=== PATIENT | female | born 1990 | race Caucasian/White ===

== ENCOUNTER 2017-07-27 06:17 | Emergency (ER) | payer OTHER ==
[~2017-07-27] VITALS: Ht 167.6 cm; Wt 137.9 kg
[~2017-07-27 06:17] MED LIST: BACITRACIN15 GM TOP; BRINTELLIX10 MG PO; CAVAN-FOLATE D1 EACH PO; FOLIC ACID1 MG PO; GENTAMICIN SUL3.5 GM OD; IBUPROFEN600 MG PO; LISINOPRIL-HCT1 EAC2 PO; LISINOPRIL20 MG PO; METFORMIN HCL500 M1 PO; MIRENA1 EACH IY; PHENDIMETRAZIN105 MG PO; TRAMADOL HCL50 MG PO; VITAMIN D250000 UNIT PO; XANAX0.5 MG PO; ZOFRAN ODT4 MG SL; ZOLPIDEM TARTRAT5 MG PO
[2017-07-27] MEDS ORDERED: ALPRAZOLAM ER2 MG PO (06:24)
[2017-07-27] MEDS ORDERED: PROPRANOLOL HCL60 MG PO (06:25)
[2017-07-27] MEDS ORDERED: CIPRO500 MG PO (06:40)
[2017-07-27] MEDS ORDERED: CIPRODEX OTIC7.5 ML AD (06:40)
[2017-07-27] MEDS ORDERED: NORCO 5-325 TA1 EACH PO (06:40)
== END 2017-07-27 06:51 | disposition home or self-care (01) ==
LOC: ED 06:17
DX: H60.91 Unspecified otitis externa, right ear (principal); I10 Essential (primary) hypertension; F17.200 Nicotine dependence, unspecified, uncomplicated; Z88.0 Allergy status to penicillin; Z88.2 Allergy status to sulfonamides; Z79.899 Other long term (current) drug therapy
CPT/HCPCS: 99283

== ENCOUNTER 2018-09-17 02:54 | Emergency (ER) | payer OTHER ==
[~2018-09-17] VITALS: Ht 167.6 cm; Wt 144.2 kg
[~2018-09-17 02:54] MED LIST changes: +ALPRAZOLAM ER2 MG PO; +CIPRO500 MG PO; +CIPRODEX OTIC7.5 ML AD; +DOXYCYCLINE HY100 MG PO; +NORCO 5-325 TA1 EACH PO; +PROPRANOLOL HCL60 MG PO
[2018-09-17] MEDS ORDERED: OLANZAPINE10 MG PO (03:08)
--- NOTE | 2018-09-17 11:32 | EKG ---
[facility] [address] [place] [address] Signed Normal sinus rhythm Cannot rule out Anterior infarct , age undetermined Abnormal ECG When compared with ECG of 04-JUL-2018 12:44, T wave amplitude has decreased in Anterolateral leads Confirmed by SUSAN TAYLOR DO ([id number]) on 09/17/2018 11:32:09 AM Electronically Signed By: SUSAN TAYLOR DO 09/17/18 1132 PATIENT NAME: HENRYLARA YO Electrocardiogram DATE OF : 89 PHYSICIAN: SUSAN TAYLOR DO REPORT #: [id number] REPORT IS CONFIDENTIAL AND NOT TO BE RELEASED WITHOUT AUTHORIZATION
== END 2018-09-17 05:15 | disposition home or self-care (01) ==
LOC: ED 02:54
DX: R07.9 Chest pain, unspecified (principal); I10 Essential (primary) hypertension; J45.909 Unspecified asthma, uncomplicated; F41.9 Anxiety disorder, unspecified; F17.200 Nicotine dependence, unspecified, uncomplicated; Z88.0 Allergy status to penicillin; Z88.2 Allergy status to sulfonamides; Z79.899 Other long term (current) drug therapy
CPT/HCPCS: 36415; 71046; 80053; 84484; 85025; 93005; 93010; 99285-25

== ENCOUNTER 2018-11-03 18:52 | Emergency (ER) | payer OTHER ==
[~2018-11-03] VITALS: Ht 167.6 cm; Wt 144.2 kg
--- OUTSIDE RECORDS SUMMARY | ~2018-11-03 | XMS | Clinical Summary ---
Demographics + + + | Address | [address] | | | [place] [address] | + + + | Home Phone | | + + + | Preferred Language | Unknown | + + + | Marital Status | Single | + + + | Oriental Orthodox Affiliation | 1013 | + + + | Race | Unknown | + + + | Ethnic Group | Unknown | + + + Author + + + | Author | [facility] | | | and [place] | + + + | Organization | [facility] | | | and [place] | + + + | Address | Unknown | + + + | Phone | Unavailable | + + + Support + + +---------+ + | Name | Relationship | Address | Phone | + + +---------+ + | Sunita Figueroa | AMAIRANI | Unknown | | + + +---------+ + | Neo Vick | ECON | Unknown | | + + +---------+ + Care Team Providers + +------+ + | Care Teaching Pastor Name | Role | Phone | + +------+ + | Enrrique Feliz DO | PP | | + +------+ + Allergies + [...] | + + + + + + Current Medications + + +--------+---------+------+------+-------+ | Prescription | Sig. | Disp. | Refills | Star | End | Statu | | | | | | t | Date | s | | | | | | Date | | | + + +--------+---------+------+------+-------+ | ALPRAZolam (XANAX) | Take 2 mg by mouth | | | | | Activ | | 2 MG tablet | Daily. | | | | | e | + + +--------+---------+------+------+-------+ | propranolol | Take 60 mg by mouth | | | | | Activ | | (INDERAL LA) 60 mg | Daily. | | | | | e | | SR capsule | | | | | | | + + +--------+---------+------+------+-------+ | ALPRAZolam (XANAX) | Take 0.5 mg by mouth | | | | | Activ | | 0.5 mg tablet | 3 times daily as | | | | | e | | | needed for Anxiety. | | | | | | + + +--------+---------+------+------+-------+ | | Take 1-2 tablets by | 12 | 0 | 09/3 | | Activ | | HYDROcodone-acetamin | mouth every 6 hours | tablet | | 0/20 | | e | | ophen (NORCO) 5-325 | as needed for Pain. | | | 17 | | | | mg per tablet | | | | | | | + + +--------+---------+------+------+-------+ Active Problems Not on file Social History [...] + +---------+ + | Alcohol Use | Drinks/We | oz/Week | Comments | | | ek | | | + + +---------+ + | Yes | | | "rarely" | + + +---------+ + + + + | Sex Assigned at | Date Recorded | | | | + + + | Not on file | | + + + Last Filed Vital Signs + + + + | Vital Sign | Reading | Time Taken | + + + + | Blood Pressure | 132/89 | 05/16/20171505 PDT | + + + + | Pulse | 102 | 05/16/20171505 PDT | + + + + | Temperature | 36.7 C (98 F) | 05/16/20171505 PDT | + + + + | Respiratory Rate | 16 | 05/16/20171505 PDT | + + + + | Oxygen Saturation | 97% | 05/16/20171505 PDT | + + + + | Inhaled Oxygen | - | - | | Concentration | | | + + + + | Weight | 141.5 kg (312 lb) | 05/16/20171505 PDT | + + + + | Height | 170.2 cm (5' 7") | 05/16/20171505 PDT | + + + + | Body Mass Index | 48.87 | 05/16/20171505 PDT | + + + + Plan of Treatment [...] | | | | Pneumococcal 19-64 | 9 | | | | (PPSV23 only) Medium | | | | | Risk (1 of 1 - | | | | | PPSV23) | | | | + + + + + | Cervical Cancer | | | | | Screening (Pap) | 1 | | | + + + + + | Vaccine: Influenza | | | | | (#1) | 8 | | | + + + + + Results Not on filefrom Last 3 Months Insurance + +--------+ +--------+ +---------+ | Payer | Benefi | Subscriber | Type | Phone | Address | | | t Plan | ID | | | | | | / | | | | | | | Group | | | | | + +--------+ +--------+ +---------+ | [employer] | MODA | [id number] | Medica | [phone] | | MEDICAID HMO | HEALTH | | id | 9821 | | | | MDCD | | | | | | | [place]MO [place] | | | | | + +--------+ +--------+ +---------+ + +--------+ +--------+ + + | Guarantor Name | Accoun | Relation to | Date | Phone | Billing Address | | | t Type | Patient | of | | | | | | | | | | + +--------+ +--------+ + + | DEMETRA FIGUEROA | Person | Self [birth year] | Home: | [address] | | | al/Fam | | 1989 | [phone] | [place] [address] | | | jovana | | | [phone] | | + +--------+ +--------+ + +
--- OUTSIDE RECORDS SUMMARY | ~2018-11-03 | XMS | Clinical Summary ---
Demographics + + + | Address | [address] | | | [place] [address] | + + + | Home Phone [...] Author + + + | Author | [facility] | | | and [place] | + + + | Organization | [facility] | | | and [place] [...] Team Providers + +------+ + | Care Pile Driver Operator Name | Role | Phone | [...] | [employer] | MODA | [id number] | Medica | [phone] | | MEDICAID HMO | HEALTH [...] | 1989 | [phone] | [place] [address] | | | jovana | | | [phone] | | + +--------+ +--------+ + +
[~2018-11-03 18:52] MED LIST changes: +OLANZAPINE10 MG PO
[2018-11-03] MEDS ORDERED: DIAZEPAM10 MG PO (19:04)
[2018-11-03] MEDS ORDERED: LISINOPRIL10 MG PO (19:04)
[2018-11-03] MEDS ORDERED: ANUSOL-HC30 GM PR (20:51)
[2018-11-03] MEDS ORDERED: DIFLUCAN150 MG PO (20:51)
== END 2018-11-03 21:02 | disposition home or self-care (01) ==
LOC: ED 18:52
DX: B37.3 Candidiasis of vulva and vagina (principal); K64.4 Residual hemorrhoidal skin tags; I10 Essential (primary) hypertension; J45.909 Unspecified asthma, uncomplicated; F41.9 Anxiety disorder, unspecified; F17.200 Nicotine dependence, unspecified, uncomplicated; Z88.0 Allergy status to penicillin; Z88.2 Allergy status to sulfonamides; Z79.899 Other long term (current) drug therapy
CPT/HCPCS: 81001; 84703; 87491; 87591; 99283

== ENCOUNTER 2019-07-30 08:22 | Emergency (ER) | payer OTHER ==
[~2019-07-30] VITALS: Ht 170.2 cm; Wt 140.6 kg
--- OUTSIDE RECORDS SUMMARY | ~2019-07-30 | XMS | Clinical Summary ---
Demographics + + + | Address | [address] | | | [place] [address] | + + + | Home Phone | | + + + | Preferred Language | Unknown | + + + | Marital Status | Single | + + + | Latter-Day Affiliation | 1013 | + + + | Race | Unknown | + + + | Ethnic Group | Unknown | + + + Author + + + | Author | [facility] | | | and [place] | + + + | Organization | [facility] | | | and [place] | + + + | Address | [...] Team Providers + +------+ + | Care Operations Program Manager Name | Role | Phone | + +------+ + | Enrrique Feliz DO | PCP | | + +------+ + Allergies + + + + + + | Active Allergy | Reactions | Severity | Noted | Comments | | | | | Date | | + + + + + + | Penicillins | Anaphylaxis | High | 06/22/20 | | | | | | 16 | | + + + + + + | Sulfa Antibiotics | | | 06/22/20 | Unk | | | | | 16 | | + + + + + + Medications + + + +---------+------+------+-------+ | Medication | Sig | Dispensed | Refills | Star | End | Statu | | | | | | t | Date | s | | | | | | Date | | | + + + +---------+------+------+-------+ | ALPRAZolam (XANAX) | Take 2 mg by mouth | | 0 | | | Activ | | 2 MG tablet | Daily. | | | | | e | + + + +---------+------+------+-------+ | propranolol | Take 60 mg by mouth | | 0 | | | Activ | | (INDERAL LA) 60 mg | Daily. | | | | | e | | SR capsule | | | | | | | + + + +---------+------+------+-------+ | ALPRAZolam (XANAX) | Take 0.5 mg by mouth | | 0 | | | Activ | | 0.5 mg tablet | 3 times daily as | | | | | e | | | needed for Anxiety. | | | | | | + + + +---------+------+------+-------+ | | Take 1-2 tablets by | 12 | 0 | 09/3 | | Activ | | HYDROcodone-acetamin | mouth every 6 hours | tablet | | 0/20 | | e | | ophen (NORCO) 5-325 | as needed for Pain. | | | 17 | | | | mg per tablet | | | | | | | + + + +---------+------+------+-------+ Active Problems Not on file Social History + +-------+ +--------+------+ | Tobacco Use | Types | Packs/Day | Years | Date | | | | | Used | | + +-------+ +--------+------+ | Current Every Day | | 1 | | | | Smoker | | | | | + +-------+ +--------+------+ + +---+---+---+ | Smokeless Tobacco: | | | | | Never Used | | | | + +---+---+---+ + + | Tobacco Cessation: Ready to Quit: Yes | + + + + +---------+ + | Alcohol Use | Drinks/Week | oz/Week | Comments | + + +---------+ + | Yes | | | "rarely" | + + +---------+ + + + + | Sex Assigned at | Date Recorded | | | | + + + | Not on file | | + + + + + + + | Job Start Date | Occupation | Industry | + + + + | Not on file | Not on file | Not on file | + + + + + + + + | Travel History | Travel Start | Travel End | + + + + + + | No recent travel history available. | + + Last Filed Vital Signs + + + + + | Vital Sign | Reading | Time Taken | Comments | + + + + + | Blood Pressure | 132/89 | 2017 3:06 PM | | | | | PDT | | + + + + + | Pulse | 102 | 2017 3:06 PM | | | | | PDT | | + + + + + | Temperature | 36.7 C (98 F) | 2017 3:06 PM | | | | | PDT | | + + + + + | Respiratory Rate | 16 | 2017 3:06 PM | | | | | PDT | | + + + + + | Oxygen Saturation | 97% | 2017 3:06 PM | | | | | PDT | | + + + + + | Inhaled Oxygen | - | - | | | Concentration | | | | + + + + + | Weight | 141.5 kg (312 lb) | 2017 3:06 PM | | | | | PDT | | + + + + + | Height | 170.2 cm (5' 7") | 2017 3:06 PM | | | | | PDT | | + + + + + | Body Mass Index | 48.87 | 2017 3:06 PM | | | | | PDT | | + + + + + Plan of Treatment + + + + + | Health Maintenance | Due Date | Last Done | Comments | + + + + + | Vaccine: | | | | | Dtap/Tdap/Td (1 - | 9 | | | | Tdap) | | | | + + + + + | Cervical Cancer | | | | | Screening (Pap) | 1 | | | + + + + + | Vaccine: Influenza | | | | | (#1) | 9 | | | + + + + + Results Not on filefrom Last 3 Months Insurance + +--------+ +--------+ +---------+--------+ | Payer | Benefi | Subscriber | Effect | Phone | Address | Type | | | t Plan | ID | rik | | | | | | / | | Dates | | | | | | Group | | | | | | + +--------+ +--------+ +---------+--------+ | [employer] | MODA | [id number] | | [phone] | | Medica | | MEDICAID HMO | HEALTH | | [phone]-Pr | 1 | | id | | | MDCD | | esent | | | | | | HMO [place] | | | | | | + +--------+ +--------+ +---------+--------+ + +--------+ +--------+ + + | Guarantor Name | Accoun | Relation to | Date | Phone | Billing Address | | | t Type | Patient | of | | | | | | | | | | + +--------+ +--------+ + + | Demetra Baer | Person | Self [birth year] | [address] | | | al/Fam | | 1990 | [phone] | [place] [address] | | | jovana | | | 8 (Home) | | + +--------+ +--------+ + + Advance Directives + + + + + | Type | Date Recorded | Patient | Explanation | | | | Factory Engineer | | + + + + + | Power of | | | | | Relief Cook | | | | + + + + + | Advance | | | | | Directive | | | | + + + + +
--- OUTSIDE RECORDS SUMMARY | ~2019-07-30 | XMS | Encounter Summary ---
Demographics + + + | Address | [address] | | | [place] [address] | + + + | Home Phone | | + + + | Preferred Language | Unknown | + + + | Marital Status | Single | + + + | Hoahaoism Affiliation | 1013 | + + + | Race | Unknown | + + + | Ethnic Group | Unknown | + + + Author + + + | Author | [facility] | | | and [place] | + + + | Organization | [facility] | | | and [place] | [...] Team Providers + +------+ + | Care Cattle Driver Name | Role | Phone | + +------+ + | Enrrique Feliz DO | PCP | | + +------+ + Reason for Visit + + + | Reason | Comments | + + + | Knee Pain | | + + + Encounter Details +--------+ + + + + | Date | Type | Department | Care Team | Description | +--------+ + + + + | 05/16/ | Emergency | [facility] | Fred Arroyo MD | Sprain of left knee, | | 2017 | | [facility] | [address] | unspecified | | | | CENTER [address] | [place] | ligament, initial | | | | [place], [place] | [address] | encounter (Primary | | | | [address] | | Dx) | | | | [phone] | | | +--------+ + + + [...] recent travel history available. | + + documented as of this encounter [...] documented in this encounter Discharge Instructions Instructions Fred Arroyo MD - 2017Crutches as needed, may start to bear weight as tolerated Ice to help with swelling Pain medication as needed Return for worsening symptoms, not improving, other new complaints documented in this encounter Medications at Time of Discharge + + + +---------+ + + | Medication | Sig | Dispensed | Refills | Start | End Date | | | | | | Date | | + + + +---------+ + + | ALPRAZolam (XANAX) | Take 0.5 mg by mouth | | 0 | | | | 0.5 mg tablet | 3 times daily as | | | | | | | needed for Anxiety. | | | | | + + + +---------+ + + | ALPRAZolam (XANAX) | Take 2 mg by mouth | | 0 | | | | 2 MG tablet | Daily. | | | | | + + + +---------+ + + | | Take 1-2 tablets by | 12 | 0 | 05/16/20 | | | HYDROcodone-acetamin | mouth every 6 hours | tablet | | 17 | | | ophen (NORCO) 5-325 | as needed for Pain. | | | | | | mg per tablet | | | | | | + + + +---------+ + + | propranolol | Take 60 mg by mouth | | 0 | | | | (INDERAL LA) 60 mg | Daily. | | | | | | SR capsule | | | | | | + + + +---------+ + + documented as of this encounter Plan of Treatment Not on filedocumented as of this encounter Procedures + +--------+ + + + | Procedure Name | Priori | Date/Time | Associated Diagnosis | Comments | | | ty | | | | + +--------+ + + + | XR KNEE LEFT 1 - 2 | STAT | 2017 | | Results for this | | VW | | 4:00 PM | | procedure are in the | | | | PDT | | results section. | + +--------+ + + + documented in this encounter Results XR Knee Left 1 - 2 Vw (2017 4:00 PM PDT) + + | Specimen | + + | | + + + + + | Narrative | Performed At | + + + | XR KNEE LEFT 1 - 2 VW 2017 3:35 PM HISTORY: KNEE PAIN. | [facility] | | COMPARISON: None. FINDINGS: There are no acute osseous findings. | | | No significant degenerative changes are seen. Bone mineralization is | | | normal. Small suprapatellar joint effusion. Soft tissue structures | | | are unremarkable. IMPRESSION - No acute osseous findings. | | | Small suprapatellar joint effusion. Dictated and Signed by: Gabino | | | MD Roc Electronically signed: 05/17/2017 12:11 AM | | + + + + + | Procedure Note | + + | Phuc, Rad Results In - 05/17/2017 12:14 AM PDT XR KNEE LEFT 1 - 2 VW 2017 3:35 PM | | | | HISTORY: KNEE PAIN. | | | | COMPARISON: None. | | | | FINDINGS: | | There are no acute osseous findings. No significant degenerative changes are | | seen. Bone mineralization is normal. Small suprapatellar joint effusion. Soft | | tissue structures are unremarkable. | | | | IMPRESSION - | | No acute osseous findings. | | | | Small suprapatellar joint effusion. | | | | Dictated and Signed by: Gabino Brian MD | | Electronically signed: 05/17/2017 12:11 AM | + + + +---------+ + + | Performing | Address | City/State/Zipcode | Phone Number | | Organization | | | | + +---------+ + + | [facility] | | | | + +---------+ + + documented in this encounter Visit Diagnoses + + | Diagnosis | + + | Sprain of left knee, unspecified ligament, initial encounter - Primary | + + documented in this encounter Administered Medications + +--------+ +---------+------+------+ | Medication Order | MAR | Action | Dose | Rate | Site | | | Action | Date | | | | + +--------+ +---------+------+------+ | HYDROcodone-acetaminophen | Given | 05/16/20 | 2 | | | | (NORCO) 5-325 mg per tablet 2 | | 17 4:40 | tablets | | | | tablet 2 tablet, Oral, ONCE, Sat | | PM PDT | | | | | 05/16/17 at 1615, For 1 dose | | | | | | + +--------+ +---------+------+------+ +---+---+ | | | +---+---+ documented in this encounter
--- OUTSIDE RECORDS SUMMARY | ~2019-07-30 | XMS | Encounter Summary ---
Demographics + + + | Address | [address] | | | [place] [address] | + + + | Home Phone | | + + + | Preferred Language | Unknown | + + + | Marital Status | Single | + + + | Evangelical Affiliation | 1013 | + + + | Race | Unknown | + + + | Ethnic Group | Unknown | + + + Author + + + | Author | [facility] | | | and [place] | + + + | Organization | [facility] | | | and [place] [...] Team Providers + +------+ + | Care Nurse Emergency Room Name | Role | Phone | + [...] + + | 06/22/ | Emergency | [facility] | Jerrell Sin, | Elbow fracture, | | 2016 | | [facility] | [place] [address] [address] | right, closed, | | | | CENTER [address] | [place] | initial encounter | | | | [place] | [address] | (Primary Dx) | | | | [address] | | | | | | [phone] | | | +--------+ + + + [...]
--- OUTSIDE RECORDS SUMMARY | ~2019-07-30 | XMS | Encounter Summary ---
Demographics + + + | Address | [address] | | | [place] [address] | + + + | Home Phone | | + + + | Preferred Language | Unknown | + + + | Marital Status | Single | + + + | Muslim Affiliation | 1013 | + + + | Race | Unknown | + + + | Ethnic Group | Unknown | + + + Author + + + | Author | [facility] | | | and [place] | + + + | Organization | [facility] | | | and [place] [...] Team Providers + +------+ + | Care Fruit Tester Name | Role | Phone | + [...] + + | 06/22/ | Emergency | [facility] | Jerrell Sin, | Elbow fracture, | | 2016 | | [facility] | [place] [address] [address] | right, closed, | | | | CENTER [address] | [place] | initial encounter | | | | [place] | [address] | (Primary Dx) | | | | [address] | | | | | | [phone] | | | +--------+ + + + [...]
--- OUTSIDE RECORDS SUMMARY | ~2019-07-30 | XMS | Clinical Summary ---
Demographics + + + | Address | [address] | | | [place] [address] | + + + | Home Phone | | + + + | Preferred Language | Unknown | + + + | Marital Status | Single | + + + | Islam Affiliation | 1013 | + + + | Race | Unknown | + + + | Ethnic Group | Unknown | + + + Author + + + | Author | [facility] | | | and [place] | + + + | Organization | [facility] | | | and [place] | [...] Team Providers + +------+ + | Care Insulating Machine Operator Name | Role | Phone | [...] | [employer] | MODA | [id number] | | [phone] | | Medica | [...] | 1990 | [phone] | [place] [address] | | | jovana | | | 8 (Home) | | + +--------+ +--------+ + + Advance Directives + + + + + | Type | Date Recorded | Patient | Explanation | | | | Independent Freight Agent | | + + + + + | Power of | | | | | Director Of Donor Relations | | | | + + + + + | Advance | | | | | Directive | | | | + + + + +
--- OUTSIDE RECORDS SUMMARY | ~2019-07-30 | XMS | Encounter Summary ---
Demographics + + + | Address | [address] | | | [place] [address] | + + + | Home Phone | | + + + | Preferred Language | Unknown | + + + | Marital Status | Single | + + + | Sabianism Affiliation | 1013 | + + + | Race | Unknown | + + + | Ethnic Group | Unknown | + + + Author + + + | Author | [facility] | | | and [place] | + + + | Organization | [facility] | | | and [place] [...] Team Providers + +------+ + | Care Chemist Inorganic Name | Role | Phone | + [...] | | | | CENTER [address] | [place], [place] | ligament, initial | | | | [place] | [address] | encounter (Primary | | | | [address] | | Dx) | | | | [phone] | | | +--------+ + + + [...]
[~2019-07-30 08:22] MED LIST changes: +ANUSOL-HC30 GM PR; +CLEOCIN HCL300 MG PO; +DIAZEPAM10 MG PO; +DIFLUCAN150 MG PO; +LAMICTAL25 MG PO; +LISINOPRIL10 MG PO
--- OUTSIDE RECORDS SUMMARY | 2019-07-30 08:24 | XMS ---
PreManage Notification: LA FIGUEROA Security Kier Tender Events No recent Security Events currently on file CRITERIA MET - 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 Care History Medical/Surgical 11/29/2018 [facility] - [facility] REFERRAL MADE- FOR FURTHER CASE MANAGEMENT FOLLOW UP. EVera. VISIT COUNT (12 MO.) 5 [facility] TOTAL 5 NOTE: Visits indicate total known visits. ED/UCC VISIT TRACKING (12 MO.) 07/30/2019 08:22 [facility] [place] TYPE: Emergency COMPLAINT: - COUGH, FEVER 03/01/2019 05:45 [facility] [place] TYPE: Emergency COMPLAINT: - CHEST PAIN/NAUSEA/SOME TROUBLE BREATHING DIAGNOSES: - Allergy status to sulfonamides status - Allergy status to penicillin - Nicotine dependence, unspecified, uncomplicated - Essential (primary) hypertension - Ventricular premature depolarization - Acquired absence of other organs - Other correction (current) drug therapy - Anxiety disorder, unspecified 11/28/2018 06:36 [facility] [place] TYPE: Emergency COMPLAINT: - POSS ABSCESS DIAGNOSES: - Allergy status to sulfonamides status - Nicotine dependence, unspecified, uncomplicated - Abscess of the breast and nipple - Other correction (current) drug therapy - Allergy status to penicillin - Essential (primary) hypertension - Anxiety disorder, unspecified 11/03/2018 18:52 [facility] [place] TYPE: Emergency COMPLAINT: - VAGINAL PROBLEM DIAGNOSES: - Essential (primary) hypertension - Pelvic and perineal pain - Anxiety disorder, unspecified - Other exterminator helper termite (current) drug therapy - Allergy status to sulfonamides status - Nicotine dependence, unspecified, uncomplicated - Unspecified asthma, uncomplicated - Allergy status to penicillin - Residual hemorrhoidal skin tags - Candidiasis of vulva and vagina 09/17/2018 02:55 [facility] [place] TYPE: Emergency COMPLAINT: - CHEST PN DIAGNOSES: - Allergy status to sulfonamides status - Chest pain, unspecified - Unspecified asthma, uncomplicated - Anxiety disorder, unspecified - Essential (primary) hypertension - Nicotine dependence, unspecified, uncomplicated - Other exterminator helper termite (current) drug therapy - Allergy status to penicillin INPATIENT VISIT TRACKING (12 MO.) No inpatient visits to display in this time frame [email or web address]
[2019-07-30] MEDS ORDERED: VALIUM10 MG PO (08:42)
== END 2019-07-30 09:50 | disposition home or self-care (01) ==
LOC: ED 08:22
DX: J10.1 Influenza due to other identified influenza virus with other respiratory manifestations (principal); I10 Essential (primary) hypertension; J45.909 Unspecified asthma, uncomplicated; F31.9 Bipolar disorder, unspecified; Z87.891 Personal history of nicotine dependence; Z88.0 Allergy status to penicillin; Z88.2 Allergy status to sulfonamides; Z79.899 Other long term (current) drug therapy
CPT/HCPCS: 81001; 87502; 99283

== ENCOUNTER 2020-05-16 11:02 | Inpatient (IN) | payer OTHER ==
--- OUTSIDE RECORDS SUMMARY | ~2020-05-16 | XMS | Encounter Summary ---
Demographics + + + | Address | [address] | | | [place] [address] | + + + | Home Phone | | + + + | Preferred Language | Unknown | + + + | Marital Status | Single | + + + | Catholic Affiliation | 1013 | + + + | Race | White | + + + | Ethnic Group | Not or | + + + Author + + + | Author | [facility] | | | and [place] | + + + | Organization | [facility] | | | and [place] | + + + | Address | Unknown | + + + | Phone | Unavailable | + + + Support + + +---------+ + | Name | Relationship | Address | Phone | + + +---------+ + | Sunita Baer | ECON | Unknown | | + + +---------+ + | Neo Vick | ECON | Unknown | | + + +---------+ + Care Team Providers + +------+ + | Care Green Plumber Name | Role | Phone | + +------+ + | Enrrique Feliz DO | PCP | | + +------+ + Reason for Visit + + + | Reason | Comments | + + + | Arm Injury | | + + + Encounter Details +--------+ + + + + | Date | Type | Department | Care Team | Description | +--------+ + + + + | 06/22/ | Emergency | [facility] | Jerrell Sin, | Elbow fracture, | | 2015 | | [facility] | [address] | , magda, | | | | CENTER [address] | KATHRYN HUFF | initial encounter | | | | [place] | [place] [address] | (Primary Dx) | | | | [address] | [phone] | | | | | [phone] | | | +--------+ + + + + Social History + +-------+ +--------+------+ | Tobacco Use | Types | Packs/Day | Years | Date | | | | | Used | | + +-------+ +--------+------+ | Current Some Day | | 0.5 | | | | Smoker | | | | | + +-------+ +--------+------+ + + | Tobacco Cessation: Ready to Quit: Yes | + + + + +---------+ + | Alcohol Use | Drinks/Week | oz/Week | Comments | + + +---------+ + | No | | | | + + +---------+ + + + + | Sex Assigned at | Date Recorded | | | | + + + | Not on file | | + + + documented as of this encounter Last Filed Vital Signs + + + + + | Vital Sign | Reading | Time Taken | Comments | + + + + + | Blood Pressure | 71/49 | 06/22/2016 1:12 PM | | | | | PST | | + + + + + | Pulse | 92 | 06/22/2016 1:12 PM | | | | | PST | | + + + + + | Temperature | 37.7 C (99.8 F) | 06/22/2016 1:12 PM | | | | | PST | | + + + + + | Respiratory Rate | - | - | | + + + + + | Oxygen Saturation | 99% | 06/22/2016 1:12 PM | | | | | PST | | + + + + + | Inhaled Oxygen | - | - | | | Concentration | | | | + + + + + | Weight | - | - | | + + + + + | Height | - | - | | + + + + + | Body Mass Index | - | - | | + + + + + documented in this encounter Discharge Instructions Instructions Jerrell Sin MD - 06/22/2016 Rest right elbow in splint and sling from aggravating positions and activities. Avoid bend ing, lifting, twisting and ues. Ice and Tylenol as needed for pain, start once daily range of motion in a few days. Recheck in about 5 days, sooner if worse. If your symptoms are no t resolving as expected please return here or go to an emergency department as needed. We are committed to improving the emergency department experience for our patients, and anoop greg love to hear your feedback. If you receive a customer satisfaction survey either by mail or email, please fill it out and let us know how we are doing! We love to hear about any p ositive experiences, and we need to hear about any areas we can improve upon. We appreciate you taking the time to fill out this survey so we can continue to serve our community in th e best way possible. documented in this encounter Medications at Time of Discharge + + + +---------+ + + | Medication | Sig | Dispensed | Refills | Start | End Date | | | | | | Date | | + + + +---------+ + + | ergocalciferol | Take 50,000 Units by | | 0 | | | | (VITAMIN D-2) 50,000 | mouth Once a week. | | | | 7 | | units capsule | | | | | | + + + +---------+ + + | folic acid 1 mg | Take 1 mg by mouth | | 0 | | | | tablet | Daily. | | | | 7 | + + + +---------+ + + | | Take 1 tablet by | 15 | 0 | 06/22/20 | | | HYDROcodone-acetamin | mouth every 6 hours | tablet | | 16 | 7 | | ophen (NORCO) 5-325 | as needed. | | | | | | mg per tablet | | | | | | + + + +---------+ + + | vortioxetine | Take 10 mg by mouth | | 0 | | | | (BRINTELLIX) 10 mg | Daily. | | | | 7 | | tablet | | | | | | + + + +---------+ + + documented as of this encounter ED Jerrell Mcmahon MD - 06/22/2016 1:07 PM PSTFormatting of this note might be different fro m the original. [facility] Angeles Baer Emergency Department Encounter Note [address] [place] [address] PCP:Enrrique Feliz DO [phone] CHIEF COMPLAINT: Chief Complaint Patient presents with Arm Injury ED Room: ED10/ED10 TRIAGE: ED Triage Notes Rain Byrne RN 06/22/2016 13:19 Pt here for c/o swelling and px to R elbow after a slight bump to elbow 3 days ago. Pt did recently get over a kidney infection and sore ear but otherwise no health concerns. No open area or puncture noted to elbow. HPI Angeles Baer is a 26 y.o. female who presents to the Emergency Department with 3 days of pa in in the right forearm and hand since she bumped her posterior elbow against a cinder block at home. Her pain is primarily around the medial epicondyle more than the olecranon and ra diates down the forearm with some numbness in the wrist and hand. She had prior numbness wh en she was a few years ago and intermittently since then. She is a right-handed mo m. Pain is worse with moving and making a fist. She says she was seen and evaluated in the emergency department in [place] for this and was felt to have tennis elbow. PAST MEDICAL & SURGICAL HISTORY Past Medical History Diagnosis Date Hypertension Prediabetes Past Surgical History Procedure Laterality Date section I reviewed past medical history, medications and allergies at presentation. CURRENT MEDICATIONS Previous Medications ERGOCALCIFEROL (VITAMIN D-2) 50,000 UNITS CAPSULE Take 50,000 Units by mouth Once a wee k. FOLIC ACID 1 MG TABLET Take 1 mg by mouth Daily. VORTIOXETINE (BRINTELLIX) 10 MG TABLET Take 10 mg by mouth Daily. ALLERGIES Allergies Allergen Reactions Penicillins Anaphylaxis Sulfa Antibiotics Unk FAMILY AND SOCIAL HISTORY History reviewed. No pertinent family history. Social History Social History Marital Status: Single Spouse Name: N/A Number of Children: N/A Years of Education: N/A Social History Main Topics Smoking status: Current Some Day Smoker -- 0.50 packs/day Smokeless tobacco: None Alcohol Use: No Drug Use: No Sexual Activity: Yes Control/ Protection: Yes Other Topics Concern None Social History Narrative None REVIEW OF SYSTEMS As in history of present illness. She says she has a smoker's cough but has not been sick lately and there is been no fever or vomiting. PHYSICAL EXAM VITAL SIGNS: (first vital signs):Temp: 37.7 C (99.8 F) Pulse: 92 SpO2: 99 % BP: (!) 7 1/49 mmHg but immediate recheck showed 130 systolic, so erroneous reading suspected as she i s clinically normotensive. Constitutional: female patient, Mild to moderate distress only with palpation and movemen t of the right upper extremity Head: Atraumatic, no facial asymmetry Eyes: PER, eyes clear of redness. ENT: External ears appear normal, Neck: Supple with good range of motion, no JVD Respiratory: No respiratory distress, Extremities: There is generalized tenderness of the right forearm that is moderate at the w rist and olecranon with marked tenderness of the medial epicondyles the right elbow and no t enderness of the lateral epicondyle there is no swelling of the elbow joint but there is red uced range of motion generalized swelling of the distal forearm and wrist with reduced motio n of the wrist as well, the shoulder and upper right arm are Atraumatic without deformities, No lower extremity edema, no calf asymmetry. Skin: Warm, Dry, No rashes Neurologic: Alert & oriented. Not anxious. No focal deficits., Speech normal, gait not te sted Psychiatric: Normal mood and affect. LABS No results found for this or any previous visit. IMAGING STUDIES (X-Rays interpreted by ED Physician) X-ray shows a small chip of bone in the area of the medial epicondyle. Discussed with r adiologist ED COURSE & MEDICAL DECISION MAKING Pertinent Labs & Imaging studies were reviewed along with EMS notes and jail record s if applicable. (See chart for details) Medications and Allergy list reviewed. Nurses note and old records were reviewed The patient was seen and examined, given Motrin [place] and x-ray Immobilization advised and ortho referral Splint checked by me after placement. Last Set of Vital Signs: Temp: 37.7 C (99.8 F) Pulse: 92 SpO2: 99 % BP: (!) 71/49 mmH g FINAL IMPRESSION ICD-10-CM ICD-9-CM 1. Elbow fracture, right, closed, initial encounter S42.401A 812.40 Follow-up Information Follow up with Chintan Cruz MD In 5 days. Specialty: Orthopedic Surgery Why: For re-check Contact information: [address] [place] [address] New Prescriptions HYDROCODONE-ACETAMINOPHEN (NORCO) 5-325 MG PER TABLET Take 1 tablet by mouth every 6 ho urs as needed. Discharge Instructions Rest right elbow in splint and sling from aggravating positions and activities. Avoid bend ing, lifting, twisting and ues. Ice and Tylenol as needed for pain, start once daily range of motion in a few days. Recheck in about 5 days, sooner if worse. If your symptoms are no t resolving as expected please return here or go to an emergency department as needed. We are committed to improving the emergency department experience for our patients, and anoop garza love to hear your feedback. If you receive a customer satisfaction survey either by mail or email, please fill it out and let us know how we are doing! We love to hear about any p ositive experiences, and we need to hear about any areas we can improve upon. We appreciate you taking the time to fill out this survey so we can continue to serve our community in th e best way possible. Portions of this chart may have been created with [employer] voice recognition software. Occasi onal wrong-word or sound-alike substitutions may have occurred due to the inherent abdalla itations of voice recognition software. Please read the chart carefully and recognize, using context, where these substitutions have occurred Jerrell Sin MD 06/22/16 1439 document ed in this encounter Miscellaneous Notes ED Triage Notes - Rain Byrne RN - 06/22/2016 1:18 PM PSTPt here for c/o swelling and p x to R elbow after a slight bump to elbow 3 days ago. Pt did recently get over a kidney infe ction and sore ear but otherwise no health concerns. No open area or puncture noted to elbow . documented in this enc ounter Plan of Treatment Not on filedocumented as of this encounter Procedures + +--------+ + + + | Procedure Name | Priori | Date/Time | Associated Diagnosis | Comments | | | ty | | | | + +--------+ + + + | XR ELBOW RIGHT 3 + | STAT | 06/22/2016 | | Results for this | | VW | | 1:32 PM | | procedure are in the | | | | PST | | results section. | + +--------+ + + + documented in this encounter Results XR Elbow Right 3 + Vw (06/22/2016 1:32 PM PST) + + | Specimen | + + | | + + + + | Addenda | + + | Addendum by Eugene Duvall MD on 06/22/2016 1:45 PM The calcium adjacent to the | | medial epicondyle could represent avulsion injury. These findings were discussed with | | Dr. Jerrell Sin. Dictated and Signed by: Eugene Duvall MD Electronically | | signed: 06/22/2016 1:42 PM | + + + + + | Narrative | Performed At | + + + | XR ELBOW RIGHT 3 + VW 06/22/2016 1:20 PM HISTORY: ARM INJURY. | [facility] | | COMPARISON: None. FINDINGS: There are no acute osseous | | | abnormalities. An ossification is adjacent to the medial epicondyle. | | | No significant degenerative changes are seen. Bone mineralization is | | | normal. No significant elbow joint effusion is seen. Soft tissue | | | structures are unremarkable. IMPRESSION - No acute osseous | | | findings. Dictated and Signed by: Eugene Duvall MD | | | Electronically signed: 06/22/2016 1:35 PM | | + + + + + | Procedure Note | + + | Phuc, Rad Results In - 06/22/2016 1:38 PM PST XR ELBOW RIGHT 3 + VW 06/22/2016 1:20 PM | | | | HISTORY: ARM INJURY. | | | | COMPARISON: None. | | | | FINDINGS: | | There are no acute osseous abnormalities. An ossification is adjacent to the | | medial epicondyle. No significant degenerative changes are seen. Bone | | mineralization is normal. No significant elbow joint effusion is seen. Soft | | tissue structures are unremarkable. | | | | IMPRESSION - | | No acute osseous findings. | | | | Dictated and Signed by: Eugene Duvall MD | | Electronically signed: 06/22/2016 1:35 PM | + + + +---------+ + + | Performing | Address | City/State/Zipcode | Phone Number | | Organization | | | | + +---------+ + + | [facility] | | | | + +---------+ + + documented in this encounter Visit Diagnoses + + | Diagnosis | + + | Elbow fracture, right, closed, initial encounter - Primary | + + documented in this encounter Administered Medications + +--------+ +---------+------+------+ | Medication Order | MAR | Action | Dose | Rate | Site | | | Action | Date | | | | + +--------+ +---------+------+------+ | HYDROcodone-acetaminophen | Given | 06/22/20 | 2 | | | | (NORCO) 5-325 mg per tablet 1-2 | | 16 1:30 | tablets | | | | tablet 1-2 tablet, Oral, ONCE, | | PM PST | | | | | 06/22/16 at 1325, For 1 dose | | | | | | + +--------+ +---------+------+------+ +---+---+ | | | +---+---+ + +-------+ +--------+---+---+ | ibuprofen (ADVIL,MOTRIN) tablet | Given | 06/22/20 | 600 mg | | | | 600 mg 600 mg, Oral, ONCE, Sun | | 16 1:30 | | | | | 06/22/16 at 1325, For 1 dose, Give | | PM PST | | | | | with food., | | | | | | + +-------+ +--------+---+---+ +---+---+ | | | +---+---+ documented in this encounter"
--- OUTSIDE RECORDS SUMMARY | ~2020-05-16 | XMS | Encounter Summary ---
Demographics + + + | Address | [address] | | | [place] [address] | + + + | Home Phone | | + + + | Preferred Language | Unknown | + + + | Marital Status | Single | + + + | Moravian Affiliation | 1013 | + + + | Race | White | + + + | Ethnic Group | Not or | + + + Author + + + | Author | [facility] | | | and [place] | + + + | Organization | [facility] | | | and [...] Team Providers + +------+ + | Care Jewelry Bench Molder Name | Role | Phone | + [...] | | | | Radiology | | [facility] | [facility] | | | | | Palpitations | [address] | | | | | Procedures | [address] | [address] | | | | | ECHO | [place] | [place] | | | | | Complete | [place], [place] | [address] | | | | | | [address] | Phone: | | | | | | Phone: | [phone] | | | | | | [phone] | Fax: | | | | | | Fax: | [phone] | | | | | | [phone] | | + +--------+ + + + [...] + + | 12/04/ | Office | [facility] | Nereyda Alvarez DO | Essential | | 2020 | Visit | CARDIOLOGY ALEX | [address] | hypertension | | | | [address] | [place] | (Primary Dx); | | | | [place] | [address] | Palpitations | | | | [address] | | | | | | [phone] | | | +--------+---------+ + + + [...] Nereyda Alvarez, - 12/05/2019 1:00 PM PDT [facility] Cardiology Cardiology Consult Note Reason for Consultation: [...] 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
--- OUTSIDE RECORDS SUMMARY | ~2020-05-16 | XMS | Clinical Summary ---
Demographics + + + | Address | [address] | | | [place] [address] | + + + | Home Phone | | + + + | Preferred Language | Unknown | + + + | Marital Status | Single | + + + | Voodoo Affiliation | 1013 | + + + | Race | White | + + + | Ethnic Group | Not or | + + + Author + + + | Author | [facility] | | | and [place] | + + + | Organization | [facility] | | [...] Team Providers + +------+ + | Care Steam Power Plant Operator Name | Role | Phone | + [...] | 1 | | | + + +-------+ + [...] | [employer] | [employer] | [id number] | | [phone] | | Medica | | MEDICAID HMO | HEALTH | | 016-Pr | 1 | | id | | | MDCD | | esent | | | | | | [place] | | | | | | + +--------+ +--------+ +---------+--------+ | [employer] | [employer] | [id number] | | [phone] | | Medica | [...] | | al/Fam | | 1990 | [phone] | [place] | | | jovana | | | 0 (Home) | [address] | + +--------+ +--------+ + + | Demetra Baer | Person | Self [birth year] | | | al/Fam | | 1990 | [phone] | [place] | | | [place]ana | | | 0 ([place]) | [address] | + +--------+ +--------+ + + Advance Directives + + + + + | Type | Date Recorded | Patient | Explanation | | | | Explosive Ordnance Technician | | + + + + + | Power of | | | | | Time Buyer | | | | + + + + + | Advance | | | | | Directive | | | | + + + + +
--- OUTSIDE RECORDS SUMMARY | ~2020-05-16 | XMS | Encounter Summary ---
Demographics + + + | Address | [address] | | | [place] [address] | + + + | Home Phone | | + + + | Preferred Language | Unknown | + + + | Marital Status | Single | + + + | Samaritan Affiliation | 1013 | + + + | Race | White | + + + | Ethnic Group | Not or | + + + Author + + + | Author | [facility] | | | and [place] | + + + | Organization | [facility] | | | [...] Team Providers + +------+ + | Care Rocket Assembly Operator Name | Role | Phone | [...] + | 05/16/ | Emergency | [facility] | Fred Arroyo MD | Sprain of left knee, | | 2016 | | [facility] | [address] | unspecified | | | | CENTER [address] | [place] | ligament, initial | | | | [place] | [phone] | encounter (Primary | | | | [address] | | Dx) | | | | [phone] | | | +--------+ + + + [...] times daily as | | | | 0 | | | needed for Anxiety. | | | | | + + + +---------+ + + | ALPRAZolam (XANAX) | Take 2 mg by mouth | | 0 | | | | 2 MG tablet | Daily. | | | | 0 | + + + +---------+ + + | | Take 1-2 tablets by | 12 | 0 | 05/16/20 | | | HYDROcodone-acetamin | mouth every 6 hours | tablet | | 17 | 0 | | ophen (NORCO) 5-325 | as needed for Pain. | | | | | | mg per tablet | | | | | | + + + +---------+ + + | propranolol | Take 60 mg by mouth | | 0 | | | | (INDERAL LA) 60 mg | Daily. | | | | 0 | | SR capsule | | | | | | + + + +---------+ + + documented as of this encounter ED Notes Fred Arroyo MD - 2017 3:38 PM PDT Emergency Department Encounter Note CHIEF COMPLAINT: Knee pain HPI Angeles Baer is a 27 y.o. female who presents to the Emergency Department who was in jured yesterday when somebody attempted to pick her up all given her a hug. She had popping and pain in her left knee. She's not had previous injury to that knee before. She's deo nued to have difficulty bearing weight on it. She is noted pain particularly over the proxi mal aspect of the knee in the medial side. She's not had noted swelling. She denies direct trauma to it. She's had a lot of difficulty bearing weight. PAST MEDICAL & SURGICAL HISTORY Past Medical History: Diagnosis Date Hypertension Prediabetes Past Surgical History: Procedure Laterality Date SECTION REVIEW OF SYSTEMS As in history of present illness. PHYSICAL EXAM VITAL SIGNS: (first vital signs):Temp: 36.7 C (98 F) Pulse: 102 Resp: 16 SpO2: 97 % BP: 132/89 Gen: Alert, Oriented, appears well, non toxic appearance Focused examination of her left knee reveals tenderness of the distal femur, there is no cr epitus or deformity, there is no clear effusion, brisk cap refill, distal sensation intact DIAGNOSTICS: X-ray knee without acute ASSESMENT & ED COURSE: Patient here with what appears to be knee sprain. We'll go and place her in an Parish wrap. Crutches as needed. She is to keep it iced. Pain medication as needed. She is given retur n precautions. DISPOSITION: Discharge FINAL IMPRESSION: Knee sprain Fred Arroyo MD 05/16/17 1717 avcarrie, Mirlande Norton RN - 2017 3:05 PM PDTPt here for left knee pain after being picked up by a friend late la st night; states she felt a pop in her left knee and has had pain since. No hx of knee probl ems. documented in th is encounter Plan of Treatment Not on filedocumented [...]
--- OUTSIDE RECORDS SUMMARY | ~2020-05-16 | XMS | Encounter Summary ---
Demographics + + + | Address | [address] | | | [place] [address] | + + + | Home Phone [...] + + + | Author | [facility] | | | and [place] | + + + | Organization | [facility] | | | [...] Team Providers + +------+ + | Care Deep Tissue Massage Therapist Name | Role | Phone | + [...] [address] | | | | | ME EXT ECG | [place] | [address] | | | | | > 48HR TO | [place], [place] | [address] | | | | | 21 DAY RCRD | [id number] | [place] | | | | | W/CONECT | Phone: | [phone] | | | | | INTL RCRD | [phone] | Phone: | | | | | ME EXT ECG > | Fax: | [phone] | | | | | 48HR TO 21 | [phone] | Fax: | | | | | DAY REVIEW | | [phone] | | | | | AND | [...] + + | 12/14/ | Procedure | [facility] | Nereyda Alvarez DO | Palpitations | | 2019 | visit | CARDIOLOGY [place] | [address] | | | | | [address] | [place], [place] | | | | | [address] | [address] | | | | | [place] | | | | | | [address] | | | | | | [phone] | | | +--------+ + + + [...] PDT7 day cardiac event monitor [facility] FRAUSTO/Billrisa information discussed. Instructions given and understood. [id number] 3:27pm REF: [id number] SN: [id number] signed by Victoria Barkley CMA at 12/15/2019 3:37 PM PDTdo cumented in this encounter Plan of Treatment Not on filedocumented as of this encounter Visit Diagnoses + + | Diagnosis | + + | Palpitations | + + documented in this encounter
--- OUTSIDE RECORDS SUMMARY | ~2020-05-16 | XMS | Encounter Summary ---
Demographics + + + | Address | [address] | | | [place] [address] | + + + | Home Phone | | + + + | Preferred Language | Unknown | + + + | Marital Status | Single | + + + | Methodist Affiliation | 1013 | + + + | Race | White | + + + | Ethnic Group | Not or | + + + Author + + + | Author | [facility] | | | and [place] | + + + | Organization | [facility] | | | [...] Team Providers + +------+ + | Care Order Make Up Clerk Name | Role | Phone | + +------+ + | Nj Sainz MD | PCP | | + +------+ + Reason for Visit + + + | Reason | Comments | + + + | Follow-up | 2 wk monitor / echo / 2 month | + + + Encounter Details +--------+---------+ + + + | Date | Type | Department | Care Team | Description | +--------+---------+ + + + | 01/25/ | Office | [facility] | Nereyda Alvarez DO | Palpitations | | 2020 | Visit | CARDIOLOGY AFSHAN | [address] | (Primary Dx) | | | | [address] [facility] | [place], [place] | | | | | [facility] [place] [facility] | [address] | | | | | [place] | | | | | | [address] | | | | | | [phone] | | | +--------+---------+ + + + [...] this encounter Progress Notes Nereyda Alvarez, - 01/26/2020 12:40 PM PDT [facility] Cardiology Cardiology Follow Up Note Reason for Consultation: HTN, Palpitations Requesting Physician: History Obtained From: patient HISTORY OF PRESENT [...] 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 She denies any lower extremity swelling. Interim history I last saw the patient on 12/05/2019. At that time, we ordered a complete echocardiogram a nd a 1-week ambulatory monitor. Her monitor was negative for any clinically significant arr hythmias. There was one reported episode, which correlated with a PVC. Overall, she had a low burden of PACs with less than 1 percent and no episodes of ventricular tachycardia. Her echocardiogram was normal. Since we last saw each other, she has been doing well. She co ntinues to have intermittent episodes of palpitations. She denies any episodes of syncope o r presyncope. Review of Systems Constitutional: Negative for fatigue. [...] Home Medications Outpatient Encounter Medications as of 01/26/2020 Medication Sig Dispense Refill albuterol 90 mcg/puff inhaler diazePAM (VALIUM) 10 MG tablet Take 10 mg by mouth 3 times daily. fluticasone (FLONASE) 50 mcg/nasal spray labetalol (NORMODYNE) 100 mg tablet Take 50 mg by mouth Daily. No facility-administered encounter medications on file as of 01/26/2020. Allergies Allergies Allergen Reactions Penicillins Anaphylaxis Sulfa [...] file Gets together: Not on file Attends congregational service: Not on file Active member of [...] on file PHYSICAL EXAM Vital Signs: BP 124/68 | Pulse 85 | Ht 1.676 m (5' 6") | Wt (!) 147.9 kg (326 lb) | SpO 2 96% | BMI 52.62 kg/m Physical Exam GENERAL: Obese female in [...] TRIG, HDL, LDL, TSH EKG: Last Echo: 12/15/2019 Normal left ventricular cavity size and wall thickness Ejection fraction 60% No regional wall motion abnormality Normal diastolic function. Last stress test: Last cath: Carotid US: AAA screening: Lower extremity US: OTHERS: 1 week Bardi monitor Procedure: Continuous ambulatory ECG for the duration [...] episode reported which correlated with a PVC. ASSESSMENT & PLAN 1. Palpitations 2. HTN 3. Anxiety 4. First trimester 5. Obesity -The patient is a 29-year-old female who presents to the cardiology office for follow up re garding palpitations. She denies any episodes of syncope or presyncope. She had a recent e chocardiogram shows normal. Recent ambulatory monitor was negative for clinically significa nt arrhythmias. I do not believe that any further cardiac work-up is indicated at this time . -Continue labetalol 50 mg by mouth daily -Follow-up as needed Thank you for allowing me to participate in the care of this patient. Primary Care Physician: MD Nereyda Mccracken DO 01/28/2020 documented in this enco unter Plan of Treatment Not on filedocumented as of this encounter Visit Diagnoses + + | Diagnosis | + + | Palpitations - Primary | + + documented in this encounter
--- OUTSIDE RECORDS SUMMARY | ~2020-05-16 | XMS | Encounter Summary ---
Demographics + + + | Address | [address] | | | [place] [address] | + + + | Home Phone | | + + + | Preferred Language | Unknown | + + + | Marital Status | Single | + + + | Bahai Affiliation | 1013 | + + + [...] Team Providers + +------+ + | Care Collarette Separator Name | Role | Phone | + [...] + + | 12/14/ | Documentati | [facility] | Kathia Ventura, | Other (end of study | | 2020 | on | CARDIOLOGY VIKING | Technologist | (7 day [facility])) | | | | [address] | | | | | | [place], [place] | | | | | | [address] | | | | | | [phone] | | | +--------+ + + + [...]
[~2020-05-16 11:02] MED LIST changes: +VALIUM10 MG PO
--- NOTE | 2020-05-17 10:19 | NUR ---
05/17/20 1019 Sheets,Ai 1002 PT ARRIVED TO ROOM 104 AND PT DENIES PAIN AND NAUSEA. PT UNABLE TO MOVE FEET OR LEGS. SPINAL LEVEL EDUCATION GIVEN. IV INFUSING LR WITH 20 PIT, SITE WNL. 1010 BABY TO CHEST WITH FBC RN.
--- NOTE | 2020-05-18 11:04 | PR ---
[facility] [address] [facility] [place] [address] Signed PP Progress Notes Datetime Report Generated by CPN: 05/18/2020 11:04 SUBJECTIVE: [id number] Pain: Within Normal Limits Nausea/Vomiting: Denies Vital Signs: [id number] Vital Signs: Reviewed; Within Normal Limits Abdomen/Uterus: Normal Lochia: Normal Extremities: Normal Incision: Normal Exam Comments: obese, dressing clean and dry IMPRESSION/PLAN/PROCEDURES: [id number] Impression: Normal Progression Plan: Continue Present Management Procedures: None Progress Notes: Doing well without complaint, sitting up in chair, tolerating food well. Signing Physician: Sveta Aj MD Copies: ~ *Electronically Signed* 05/18/20 1104 SVETA AJ MD PATIENT NAME: LA FIGUEROA PROGRESS NOTE DATE OF : [birth year] PHYSICIAN: SVETA AJ MD RPT #: [id number] REPORT IS CONFIDENTIAL AND NOT TO BE RELEASED WITHOUT AUTHORIZATION
--- NOTE | 2020-05-18 15:15 | PATH ---
[facility] [address] [place], [place] [address] Signed SPECIMEN(S): A FALLOPIAN TUBES, BILATERAL SPECIMEN SOURCE: A. FALLOPIAN TUBES, BILATERAL CLINICAL HISTORY: Repeat with salpingectomy. FINAL PATHOLOGIC DIAGNOSIS: Fallopian tubes, bilateral, salpingectomy: - Two fallopian tubes, one with paratubal cysts. - Complete cross section of each tube identified. NAL:caw:C2NR MICROSCOPIC EXAMINATION: Histologic sections of all submitted blocks are examined by light microscopy. These findings, together with the gross examination, support the pathologic diagnosis. GROSS DESCRIPTION: The specimen, labeled "TM, fallopian tubes, bilateral," is received in formalin and consists of two undesignated fallopian tubes. Both of them show fimbria and violaceus and smooth serosa. The first tube measures 5.0 x 0.8 cm. It shows a multilobular paratubal cyst that ranges in size from 0.6-1.1 cm in greatest dimension. The cyst is filled with a clear fluid. The second fallopian tube measures 6.5 x 0.7 cm. The second tube is inked. Deck Scaler sections are submitted in cassette (A1). JS (under the direct supervision of a pathologist) The Gross Description was prepared using a voice recognition system. The report was reviewed for accuracy; however, sound-alike word errors, addition and/or deletions may occur. If there is any question about this report, please contact Client Services. PERFORMING LABORATORY: The technical component was performed by [facility], [address] [place] [id number] (Meat Team Lead: Kassandra Nguyen MD; CLIA# [id number]). [facility] [address] [address] (CLIA# [id number]). PATIENT NAME: LA FIGUEROA PATHOLOGY DATE OF : [birth year] REPORT #: [id number] PHYSICIAN: LINN HUSTON PCP: EHSAN HOPSON REPORT IS CONFIDENTIAL AND NOT TO BE RELEASED WITHOUT AUTHORIZATION [address] [place] [address] Signed Diagnostician: Tracy Kincaid MD Pathologist Electronically Signed 05/18/2020 Copies: ~ PATIENT NAME: LA FIGUEROA PATHOLOGY DATE OF : [birth year] REPORT #: [id number] PHYSICIAN: LINN PATHOLOGY PCP: EHSAN HOPSON REPORT IS CONFIDENTIAL AND NOT TO BE RELEASED WITHOUT AUTHORIZATION
--- NOTE | 2020-05-19 13:02 | PR ---
[facility] [address] [place] [address] Signed PP Progress Notes Datetime Report Generated by CPN: 05/19/2020 13:01 SUBJECTIVE: [id number] Pain: Within Normal Limits Nausea/Vomiting: Denies Vital Signs: [id number] Vital Signs: Reviewed; Within Normal Limits Notable Details: PP Hgb/Hct = 10.6/31.6 Abdomen/Uterus: Normal Lochia: Normal Extremities: Normal Incision: Normal Exam Comments: obese IMPRESSION/PLAN/PROCEDURES: [id number] Impression: Normal Progression Plan: Discharge Procedures: None Progress Notes: Doing well, without complaints, wants to go home. Signing Physician: Sveta Aj MD Copies: ~ *Electronically Signed* 05/19/20 1301 SVETA AJ MD PATIENT NAME: LA FIGUEROA PROGRESS NOTE DATE OF : 90 PHYSICIAN: SVETA AJ MD RPT #: [id number] REPORT IS CONFIDENTIAL AND NOT TO BE RELEASED WITHOUT AUTHORIZATION
--- NOTE | 2020-05-20 12:25 | OR ---
[facility] [address] [place], [place] [address] Signed DATE OF OPERATION: 05/17/2020 SURGEON: Dudley Jean MD The patient of Dr. Jean. PREOPERATIVE DIAGNOSIS: Term , previous section and sterilization. POSTOPERATIVE DIAGNOSIS: Term , previous section and sterilization. PROCEDURE: Repeat low transverse segment section. Bilateral Salpingectomy. Delivery of live male . SENIOR ORACLE SOA DEVELOPER: Dr. Ferraro. ANESTHESIA: Spinal. ESTIMATED BLOOD LOSS: 700 mL. COMPLICATIONS: None. DRAINS: Albert to bladder. FINDINGS: Live male infant, Apgars 9 and 9. Weight 10 pounds 4 ounces. Normal uterus, normal tubes and ovaries bilateral. DESCRIPTION OF PROCEDURE: The patient was brought to the operating room, placed in supine position. After adequate spinal anesthesia was obtained, was prepped and draped in usual sterile fashion. Albert catheter was placed in the bladder. A Pfannenstiel skin incision was made with a scalpel through previous surgical scar. Subcutaneous tissue was dissected Electronically Signed By: DUDLEY JEAN MD 05/20/20 1225 PATIENT NAME: LA FIGUEROA OPERATIVE REPORT DATE OF : [birth year] REPORT #: [id number] PHYSICIAN: DUDLEY JEAN MD PCP: EHSAN HOPSON REPORT IS CONFIDENTIAL AND NOT TO BE RELEASED WITHOUT AUTHORIZATION [address], [place] [address] Signed with the Bovie. The fascia was nicked with scalpel and extended in transverse fashion using curved scissors. The underlying abdominal musculature was bluntly and sharply from the fascia above and below the incision. The abdominal musculature was bluntly and sharply along the midline. The peritoneum was grasped with hemostats, elevated, nicked with curved scissors extended vertical fashion using curved scissors. The Red self-retaining retractor was inserted into the incision and tightened in place. The lower uterine segment was identified. The lower uterine segment then carefully nicked with scalpel, extended in transverse fashion using finger dissection. Infant noted to be in the vertex JEFFERY presentation. Infant head was easily delivered from the incision. Cord was noted to be around the neck once loosely. This was removed. The rest of the easily delivered from the incision. Cord was doubly clamped and cut. The infant passed off table in good condition to awaiting nurse. The placenta was manually removed. Uterine cavity explored a lap pad to remove any retained membranes. An angle stitch of 0 Monocryl was placed at one end of the incision and a running locking stitch of 0 Monocryl starting at the other end used to close the incision. A second running stitch of 0 Monocryl was used to imbricate the first layer. The right Fallopian tube was clamped across the proximal portion and across the mesosalping with Violeta clamps and the tube removed with scissors. THe 3 pedicles were closed uksing free ties of 2-0 Chromic. The left Fallopian tuvbe was removed in a similar fashion. both sides were carefully examined and the right side was noted to have slight bleedign from the peritoneal edge, so this was cauteriuzed with the Bovid. Both sides were then noted to have good hemostasis. The entire pelvis was irrigated, suctioned examined, noted to have good hemostasis. The Red self-retaining retractor was removed and sheet of ACell placed over the lower uterine segment. The anterior wall peritoneum was then closed using running stitch of 2-0 Vicryl suture. The abdominal musculature was reapproximated using interrupted stitches of 0 Vicryl suture. The abdominal wall was irrigated, suctioned examined any bleeding spots cauterized with the Bovie. Powdered ACell sprinkled over the abdominal musculature and then the fascia closed using two running stitch of 0 Vicryl suture meeting in the midline. Subcutaneous tissue was irrigated, suctioned examined any bleeding spots cauterized with the Bovie. Subcutaneous tissue was closed using interrupted stitches of 3-0 Vicryl suture. The skin was reapproximated using skin clips. The patient tolerated the procedure well, went to recovery in good condition. The sponge, needle, and instrument counts were correct at the end of procedure. Dudley Jean MD Electronically Signed By: DUDLEY JEAN MD 05/20/20 1225 PATIENT NAME: LA FIGUEROA OPERATIVE REPORT DATE OF : [birth year] REPORT #: [id number] PHYSICIAN: DUDLEY JEAN MD PCP: EHSAN HOPSON REPORT IS CONFIDENTIAL AND NOT TO BE RELEASED WITHOUT AUTHORIZATION [address] [address] Signed DEL/YANCI /[id number] Copies: ~ Electronically Signed By: DUDLEY JEAN MD 05/20/20 1225 PATIENT NAME: LA FIGUEROA OPERATIVE REPORT DATE OF : [birth year] REPORT #: [id number] PHYSICIAN: DUDLEY JENA MD PCP: EHSAN HOPSON REPORT IS CONFIDENTIAL AND NOT TO BE RELEASED WITHOUT AUTHORIZATION
== END 2020-05-19 13:22 | disposition home or self-care (01) | DRG 784 ==
LOC: FBC 05-17 06:30
PROVIDERS: ADMIT General Practice; ATTEND General Practice
PROC: 0UT70ZZ Resection of Bilateral Fallopian Tubes, Open Approach (ICD-10-PCS; 2020-05-17)
PROC: 10D00Z1 Extraction of Products of Conception, Low, Open Approach (ICD-10-PCS; principal; 2020-05-17 06:45)
DX: O34.211 Maternal care for low transverse scar from previous cesarean delivery (principal); O99.324 Drug use complicating childbirth; O10.92 Unspecified pre-existing hypertension complicating childbirth; N85.8 Other specified noninflammatory disorders of uterus; O69.81X0 Labor and delivery complicated by cord around neck, without compression, not applicable or unspecified; Z30.2 Encounter for sterilization; Z37.0 Single live birth; F12.90 Cannabis use, unspecified, uncomplicated; O99.344 Other mental disorders complicating childbirth; Z3A.39 39 weeks gestation of pregnancy; F31.9 Bipolar disorder, unspecified; F41.0 Panic disorder [episodic paroxysmal anxiety]; F42.9 Obsessive-compulsive disorder, unspecified; O36.63X0 Maternal care for excessive fetal growth, third trimester, not applicable or unspecified; O99.214 Obesity complicating childbirth; O99.52 Diseases of the respiratory system complicating childbirth; J45.909 Unspecified asthma, uncomplicated; O24.420 Gestational diabetes mellitus in childbirth, diet controlled; E66.01 Morbid (severe) obesity due to excess calories; Z87.891 Personal history of nicotine dependence; Z79.899 Other long term (current) drug therapy; Z79.82 Long term (current) use of aspirin; Z88.2 Allergy status to sulfonamides; Z88.0 Allergy status to penicillin
CPT/HCPCS: 01961; 36415; 85027; 88304; A9270; J1580; J1644; J2001; J2274; J2370; J2405; J2590; J3010; J3490; J7050; J7121

== ENCOUNTER 2020-05-24 17:58 | Emergency (ER) | payer OTHER ==
[~2020-05-24] VITALS: Ht 167.6 cm; Wt 150.6 kg
--- OUTSIDE RECORDS SUMMARY | ~2020-05-24 | XMS | Encounter Summary ---
Demographics + + + | Address | [address] | | | [place] [address] | + + + | Home Phone | | + + + | Preferred Language | Unknown | + + + | Marital Status | Single | + + + | Protestant Affiliation | 1013 | + + + | Race | White | + + + | Ethnic Group | Not or | + + + Author + + + | Author | [facility] | | | and [place] | + + + | Organization | [facility] | | | and [...] Team Providers + +------+ + | Care Drilling Foreman Name | Role | Phone | + +------+ + | Nj Sainz MD | PCP | | + +------+ + Reason for Referral Diagnostic/Screening (Routine) + +--------+ + + + + | Status | Reason | Specialty | Diagnoses / | Referred By | Referred To | | | | | Procedures | Contact | Contact | + +--------+ + + + + | Authorized | | Diagnostic | Diagnoses | [facility] | [facility] | | | | Radiology | | [facility] | [facility] | | | | | Palpitations | [address] | | | | | Procedures | [address] | [address] | | | | | ECHO | [place] | [place] | | | | | Complete | [place], [place] | [address] | | | | | | [address] | Phone: | | | | | | Phone: | [phone] | | | | | | [phone] | Fax: | | | | | | Fax: | [phone] | | | | | | [phone] | | + +--------+ + + + + Reason for Visit + + + | Reason | Comments | + + + | New Patient | NEW PATIENT | + + + Auth/Cert +--------+--------+ + + + + | Status | Reason | Specialty | Diagnoses / | Referred By | Referred To | | | | | Procedures | Contact | Contact | +--------+--------+ + + + + | | | | | | | +--------+--------+ + + + + Encounter Details +--------+---------+ + + + | Date | Type | Department | Care Team | Description | +--------+---------+ + + + | 12/04/ | Office | [facility] | Nereyda Alvarez DO | Essential | | 2020 | Visit | CARDIOLOGY ALEX | [address] | hypertension | | | | [address] | [place] | (Primary Dx); | | | | [place] | [address] | Palpitations | | | | [address] | | | | | | [phone] | | | +--------+---------+ + + + Social History + +-------+ [...] | | | + +---+---+---+ + + +---------+ + | Alcohol Use [...] + + + | Blood Pressure | 122/80 | 12/05/2019 1:43 PM | | | | | PDT | | + + + + + | Pulse | 92 | 12/05/2019 1:43 PM | | | | | PDT | | + + + + + | Temperature | - | - | | + + + + + | Respiratory Rate | - | - | | + + + + + | Oxygen Saturation | 97% | 12/05/2019 1:43 PM | | | | | PDT | | + + + + + | Inhaled Oxygen | - | - | | | Concentration | | | | + + + + + | Weight | 147.4 kg (325 lb) | 12/05/2019 1:43 PM | | | | | PDT | | + + + + + | Height | 167.6 cm (5' 6") | 12/05/2019 1:43 PM | | | | | PDT | | + + + + + | Body Mass Index | 52.46 | 12/05/2019 1:43 PM | | | | | PDT | | + + + + + documented in this encounter Progress Notes Nereyda Alvarez, - 12/05/2019 1:00 PM PDT [facility] Cardiology Cardiology Consult Note Reason for Consultation: HTN, Palpitations Requesting Physician: Nj Sainz History Obtained From: patient HISTORY OF PRESENT ILLNESS: The patient is a 29-year-old female, who presents to the Cardiology office for initial cons ultation regarding episodes of palpitations. She recently went to the emergency department due one of these episodes and was subsequently referred to Cardiology. Her EKG at that time was unremarkable. The patient is presently 15 weeks . She has had one other pregn solomon, which she carried to term. She denies any issues with her , though she did have to have to have an emergency due to heart rate fluctuations in the sett ing of meconium aspiration. She notices the palpitations more whenever she is on the heavie r side, usually when she is over 300 pounds. The palpitations are somewhat difficult for he r to explain. She feels them nearly every day. 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 More recently, with the COVID epidemic, s he has not been working and has been very inactive lately. She denies any episodes of chest pain. She does report some mild shortness of breath with exertion. She has noticed that h er palpitations can be triggered by anxiety. She denies any specific alleviating factors. She denies any episodes of syncope or presyncope. She denies any lower extremity swelling. Review of Systems Constitutional: Negative for fatigue. HENT: Negative for nosebleeds. Eyes: Negative for visual disturbance. Respiratory: Negative for cough and shortness of breath. Cardiovascular: see HPI Gastrointestinal: Negative for nausea, vomiting, abdominal pain and blood in stool. Genitourinary: Negative for hematuria or dysuria. Musculoskeletal: Negative for myalgias, back pain and arthralgias. Skin: Negative for color change. Neurological: Negative for dizziness, syncope and numbness. Hematological: Does not bruise/bleed easily. Psychiatric/Behavioral: The patient is not nervous/anxious. PAST MEDICAL & SURGICAL HISTORY Past Medical History: Diagnosis Date Hypertension Prediabetes Past Surgical History: Procedure Laterality Date SECTION MEDICATIONS Home Medications Outpatient Encounter Medications as of 12/05/2019 Medication Sig Dispense Refill albuterol 90 mcg/puff inhaler [DISCONTINUED] ALPRAZolam (XANAX) 0.5 mg tablet Take 0.5 mg by mouth 3 times daily as n eeded for Anxiety. [DISCONTINUED] ALPRAZolam (XANAX) 2 MG tablet Take 2 mg by mouth Daily. diazePAM (VALIUM) 10 MG tablet Take 10 mg by mouth 3 times daily. fluticasone (FLONASE) 50 mcg/nasal spray [DISCONTINUED] HYDROcodone-acetaminophen (NORCO) 5-325 mg per tablet Take 1-2 tablets b y mouth every 6 hours as needed for Pain. (Patient not taking: Reported on 12/05/2019) 12 tab let 0 labetalol (NORMODYNE) 100 mg tablet Take 50 mg by mouth Daily. [DISCONTINUED] propranolol (INDERAL LA) 60 mg SR capsule Take 60 mg by mouth Daily. No facility-administered encounter medications on file as of 12/05/2019. Allergies Allergies Allergen Reactions Penicillins Anaphylaxis Sulfa Antibiotics Unk FAMILY HISTORY Family History Problem Relation Age of Onset Hypertension Mother Heart failure Father SOCIAL HISTORY Social History Socioeconomic History Marital status: Single Spouse name: Not on file Number of children: Not on file Years of education: Not on file Highest education level: Not on file Occupational History Not on file Social Needs Financial resource strain: Not on file Food insecurity: Worry: Not on file Inability: Not on file Transportation needs: Medical: Not on file Non-medical: Not on file Tobacco Use Smoking status: Current Every Day Smoker Packs/day: 1.00 Smokeless tobacco: Never Used Substance and Sexual Activity Alcohol use: Yes Comment: "rarely" Drug use: Yes Frequency: 7.0 times per week Types: Marijuana Sexual activity: Yes control/protection: Yes Lifestyle Physical activity: Days per week: Not on file Minutes per session: Not on file Stress: Not on file Relationships Social connections: Talks on phone: Not on file Gets together: Not on file Attends sabianism service: Not on file Active member of club or organization: Not on file Attends meetings of clubs or organizations: Not on file Relationship status: Not on file Intimate partner violence: Fear of current or ex partner: Not on file Emotionally abused: Not on file Physically abused: Not on file Forced sexual activity: Not on file Other Topics Concern Not on file Social History Narrative Not on file PHYSICAL EXAM Vital Signs: BP 122/80 | Pulse 92 | Ht 1.676 m (5' 6") | Wt (!) 147.4 kg (325 lb) | SpO 2 97% | BMI 52.46 kg/m Physical Exam GENERAL: Obese female in NAD. Appears approximately stated age. HEENT: Normocephalic, atraumatic. EYES: PERRL, sclerae anicteric, no xanthelsasmas NECK: No JVD, lymphadenopathy, thyromegaly, bruits. Carotid pulses are 2+ bilaterally LUNGS: Clear bilaterally, with no rales, rhonchi or wheezing noted, respirations unlabored HEART: Nondisplaced PMI, regular rate and rhythm, S1, S2 normal. No murmurs, rubs or gall ops noted. ABDOMEN: Soft, nontender, no organomegaly, masses or bruits. Bowel sounds are normal in a ll 4 quadrants. EXTREMITIES: No edema. Radial pulses 2+ bilaterally. DP and PT pulses are 2+ bilaterally. SKIN: Warm and dry, capillary refill is normal, no lesions. NEUROLOGIC: Awake, alert and oriented x 3. No focal motor deficits. PSYCHIATRIC: Appropriate, affect appears normal DATA No results found for: WBC, HGB, HCT, PLTNo results found for: INR, PTT No results found for : NA, K, CL, CO2, BUN, CREA, GLUCOSE, MG, AST, ALT, DIGOXIN, BNP, TSHNo results found for: C HOL, TRIG, HDL, LDL, TSH EKG: Last Echo: Last stress test: Last cath: Carotid US: AAA screening: Lower extremity US: OTHERS: ASSESSMENT & PLAN 1. Palpitations 2. HTN 3. Anxiety 4. First trimester 5. Obesity -The patient is a 29-year-old female who presents to the cardiology office for initial cons ultation regarding palpitations. She denies any episodes of syncope or presyncope. She is presently 15 weeks . She is presently on labetalol for hypertension. -Obtain a 1 week Bardi monitor - obtain a complete echocardiogram -Continue labetalol 50 mg by mouth daily -Follow-up in 2 months Thank you for allowing me to participate in the care of this patient. Primary Care Physician: MD Nereyda Mccracken DO 12/06/2019 documented in this enco unter Plan of Treatment + + +--------+ + + | Name | Type | Priori | Associated Diagnoses | Order Schedule | | | | ty | | | + + +--------+ + + | ECHO Complete | Echocardiog | Routin | Palpitations | Expected: | | | david | e | | 12/12/2019, Expires: | | | | | | 12/04/2020 | + + +--------+ + + | Event monitor - 2 | ECG | Routin | Palpitations | Expected: | | week | | e | | 12/12/2019, Expires: | | | | | | 12/04/2020 | + + +--------+ + + documented as of this encounter Procedures + +--------+ + + + | Procedure Name | Priori | Date/Time | Associated Diagnosis | Comments | | | ty | | | | + +--------+ + + + | ECG 12 LEAD | Routin | 12/05/2019 | Essential | Results for this | | | e | 1:47 PM | hypertension | procedure are in the | | | | PDT | | results section. | + +--------+ + + + documented in this encounter Results ECG 12 lead (12/05/2019 1:47 PM PDT) + + + + + + | Component | Value | Ref Range | Performed | Pathologist | | | | | At | Signature | + + + + + + | VENTRICULAR | 76 | BPM | [facility] | | | RATE EKG | | | | | + + + + + + | ATRIAL RATE | 76 | BPM | [facility] | | + + + + + + | P-R | 162 | ms | [facility] | | | INTERVAL | | | | | + + + + + + | QRS | 82 | ms | [facility] | | | DURATION | | | | | + + + + + + | Q-T | 372 | ms | [facility] | | | INTERVAL | | | | | + + + + + + | Q-T | 418 | ms | [facility] | | | INTERVAL | | | | | | (CORRECTED) | | | | | + + + + + + | P WAVE AXIS | 14 | degrees | [facility] | | + + + + + + | QRS AXIS | 46 | degrees | [facility] | | + + + + + + | T AXIS | 9 | degrees | [facility] | | + + + + + + | INTERPRETAT | Normal sinus | | [facility] | | | ION TEXT | rhythmNormal ECGNo | | | | | | previous ECGs | | | | | | availableConfirmed by | | | | | | NEREYDA ALVAREZ MD ([id number]) | | | | | | on 12/06/2019 1:06:19 PM | | | | + + + + + + + + | Specimen | + + | | + + + + + | Narrative | Performed At | + + + | | | + + + + +---------+ + + | Performing | Address | City/State/Zipcode | Phone Number | | Organization | | | | + +---------+ + + | [facility] | | | | + +---------+ + + documented in this encounter Visit Diagnoses + + | Diagnosis | + + | Essential hypertension - Primary Unspecified essential hypertension | + + | Palpitations | + + documented in this encounter
--- OUTSIDE RECORDS SUMMARY | ~2020-05-24 | XMS | Encounter Summary ---
Demographics + + + | Address | [address] | | | [place] [address] | + + + | Home Phone | | + + + | Preferred Language | Unknown | + + + | Marital Status | Single | + + + | Christian Affiliation | 1013 | + + + | Race | White | + + + | Ethnic Group | Not or | + + + Author + + + | Author | [facility] | | | and [place] | + + + | Organization | [facility] | | | and [...] Team Providers + +------+ + | Care Buckle Stapler Name | Role | Phone | + +------+ + | Nj Sainz MD | PCP | | + +------+ + Reason for Visit +--------+ + | Reason | Comments | +--------+ + | Other | end of study (7 day bardy) | +--------+ + Encounter Details +--------+ + + + + | Date | Type | Department | Care Team | Description | +--------+ + + + + | 12/14/ | Documentati | [facility] | Kathia Ventura, | Other (end of study | | 2020 | on | CARDIOLOGY LIPAN | Technologist | (7 day [facility])) | | | | [address] | | | | | | [place], [place] | | | | | | [address] | | | | | | [phone] | | | +--------+ + + + [...] + + documented as of this encounter Progress Notes Kathia Ventura, Technologist - 12/15/2019 11:59 PM PDT 7 Day Bardy Cardiac Event Monitor Date of Event Monitor: 12/15/19 Referring Physician: No Patient:Demetra Baer : 1990 Age: 29 y.o. female INDICATIONS: Palpitations Procedure: Continuous ambulatory ECG for the duration of 6 days and 4 hours. During this r ecording, the underlying rhythm is sinus rhythm the lowest heart rate was 62 BPM, the highes t heart rate 151 BPM, averaging 87 BPM. During this recording interval, there were no episo charlene of SVT. Also, <1% PVCs were recorded; there were no episodes of VT. No AV conduction a bnormalities observed. The heart rate trends did demonstrate a normal circadian pattern. In the patient's diary, there was one episode reported which correlated with a PVC. Impressions: 1: Sinus rhythm, as described above. 2: No clinically significant arrhythmias detected. 3: No AV conduction abnormality detected. 4: In the patient's diary, there was one episode reported which correlated with a PVC. Recomendations: Clinical correlation suggested. Nereyda Alvarez DO documarii moreau in this encounter Plan of Treatment Not on filedocumented as of this encounter Visit Diagnoses + + | Diagnosis | + + | Palpitations | + + documented in this encounter
--- OUTSIDE RECORDS SUMMARY | ~2020-05-24 | XMS | Clinical Summary ---
Demographics + + + | Address | [address] | | | [place] [address] | + + + | Home Phone | | + + + | Preferred Language | Unknown | + + + | Marital Status | Single | + + + | Synagogue Affiliation | 1013 | + + + | Race | White | + + + | Ethnic Group | Not or | + + + Author + + + | Author | [facility] | | | and [place] | + + + | Organization | [facility] | | [...] Team Providers + +------+ + | Care Color Card Maker Name | Role | Phone | + [...] | | + + + +---------+------+------+-------+ | diazePAM (VALIUM) | Take 10 mg by mouth | | 0 | 04/1 | | Activ | | 10 MG tablet | 3 times daily. | | | 09/05 | | e | | | | | | 20 | | | + + + +---------+------+------+-------+ | albuterol 90 | | | 0 | 12/1 | | Activ | | mcg/puff inhaler | | | | 7/20 | | e | | | | | | 19 | | | + + + +---------+------+------+-------+ | fluticasone | | | 0 | 06/1 | | Activ | | (FLONASE) 50 | | | | 1/20 | | e | | mcg/nasal spray | | | | 19 | | | + + + +---------+------+------+-------+ | labetalol | Take 50 mg by mouth | | 0 | 02/1 | | Activ | | (NORMODYNE) 100 mg | Daily. | | | 0/20 | | e | | tablet | | | | 20 | | | + + + +---------+------+------+-------+ Active Problems Not on file Family History + + +------+ + | Medical History | Relation | Name | Comments | + + +------+ + | Heart failure | Father | | | + + +------+ + | Hypertension | Mother | | | + + +------+ + + +------+--------+ + | Relation | Name | Status | Comments | + +------+--------+ + | Father | | Alive | | + +------+--------+ + | Mother | | Alive | | + +------+--------+ + Social History + +-------+ +--------+------+ | [...] on file | | + + + Last Filed Vital Signs + + + + + | Vital Sign | Reading | Time Taken | Comments | + + + + + | Blood Pressure | 124/68 | 01/26/2020 12:50 PM | | | | | PDT | | + + + + + | Pulse | 85 | 01/26/2020 12:50 PM | | | | | PDT [...] + + + | Oxygen Saturation | 96% | 01/26/2020 12:50 PM | | | | | PDT | | + + + + + | Inhaled Oxygen | - | - | | | Concentration | | | | + + + + + | Weight | 147.9 kg (326 lb) | 01/26/2020 12:50 PM | | | | | PDT | | + + + + + | Height | 167.6 cm (5' 6") | 01/26/2020 12:50 PM | | | | | PDT | | + + + + + | Body Mass Index | 52.62 | 01/26/2020 12:50 PM | | | | | PDT | | + + + + + Plan of Treatment + + +-------+ + | Health Maintenance | Due Date | Last | Comments | | | | Done | | + + +-------+ + | Hepatitis C | | | | | Screening | 0 | | | + + +-------+ + | Vaccine: | | | | | Pneumococcal 19-64 | 6 | | | | (1 of 1 - PPSV23) | | | | + + +-------+ + | Vaccine: | | | | | Dtap/Tdap/Td (1 - | 9 | | | | Tdap) | | | | + + +-------+ + | Vaccine: Influenza | | | | | (#1) | 0 | | | + + +-------+ + | Cervical Cancer | | | | | Screening (Pap) | 0 | | | + + +-------+ + Results Not on filefrom Last 3 [...] | [employer] | MODA | [id number] | | [phone] | | Medica | | MEDICAID HMO | HEALTH | | 016-Pr | 1 | | id | | | MDCD | | esent | | | | | | [place]MO [place] | | | | | | + +--------+ +--------+ +---------+--------+ | [employer] | [employer] | [id number] | | [phone] | | Medica | | MEDICAID HMO | HEALTH | | 020-Pr | 1 | | id | | [...] | Self | [birth year] | [address] | | | al/Fam | | 1990 | [phone] | [place] | | | [place] | | | 0 (Home) | [address] | + +--------+ +--------+ + + | Demetra Baer | Person | Self | [birth year] | | | al/Fam | | 1990 | [phone] | [place] | | | [place] | | | 0 ([place]) | [address] | + +--------+ +--------+ + + Advance Directives + + + + + | Type | Date Recorded | Patient | Explanation | | | | Wardrobe Stylist | | + + + + + | Power of | | | | | Bunker Worker | | | | + + + + + | Advance | | | | | Directive | | | | + + + + +
--- OUTSIDE RECORDS SUMMARY | ~2020-05-24 | XMS | Encounter Summary ---
Demographics + + + | Address | [address] | | | [place] [address] | + + + | Home Phone | | + + + | Preferred Language | Unknown | + + + | Marital Status | Single | + + + | Anabaptist Affiliation | 1013 | + + + | Race | White | + + + | Ethnic Group | Not or | + + + Author + + + | Author | [facility] | | | and [place] | + + + | Organization | [facility] | | | and [...] Team Providers + +------+ + | Care Fabric Stretcher Name | Role | Phone | + +------+ + | Nj Sainz MD | PCP | | + +------+ + Reason for Visit +--------+ + | Reason | Comments | +--------+ + | Other | 7 day Bardy | +--------+ + Service/Procedure (Routine) +--------+--------+ + + + + | Status | Reason | Specialty | Diagnoses / | Referred By | Referred To | | | | | Procedures | Contact | Contact | +--------+--------+ + + + + | Closed | | Cardiology | Diagnoses | Alvarez, | Marcus | | | | | | DO Nereyda | Cardiology | | | | | Palpitations | [address] | | | | | Procedures | [address] | [address] | | | | | [place] EXT ECG | [place] | [address] | | | | | > 48HR TO | [place], [place] | [address] | | | | | 21 DAY RCRD | [address] | [place] | | | | | W/CONECT | Phone: | [phone] | | | | | INTL RCRD | [phone] | Phone: | | | | | [place] EXT ECG > | Fax: | [phone] | | | | | 48HR TO 21 | [phone] | Fax: | | | | | DAY REVIEW | | [phone] | | | | | AND | | | | | | | INTERPRETATN | | | | | | | 1 WEEK | | | | | | | BARDY | | | +--------+--------+ + + + + Encounter Details +--------+ + + + + | Date | Type | Department | Care Team | Description | +--------+ + + + + | 12/14/ | Procedure | [facility] | Nereyda Alvarez DO | Palpitations | | 2019 | visit | CARDIOLOGY [place] | [address] | | | | | [address] | [place], [place] | | | | | [address] | [address] | | | | | [place] | | | | | | [address] | | | | | | [phone] | | | +--------+ + + + [...] documented as of this encounter Progress Notes Victoria Barkley CMA - 12/15/2019 3:00 PM PDT7 day cardiac event [facility] F[facility]UST[facility] information discussed. Instructions given and understood. [id number] 3:27pm REF: [id number] SN: [id number] signed by Victoria Barkley CMA at 12/15/2019 3:37 PM PDTdo cumented in this encounter Plan of Treatment Not on filedocumented as of this encounter Visit Diagnoses + + | Diagnosis | + + | Palpitations | + + documented in this encounter
--- OUTSIDE RECORDS SUMMARY | ~2020-05-24 | XMS | Encounter Summary ---
Demographics + + + | Address | [address] | | | [place] [address] | + + + | Home Phone | | + + + | Preferred Language | Unknown | + + + | Marital Status | Single | + + + | Worship Affiliation | 1013 | + + + | Race | White | + + + | Ethnic Group | Not or | + + + Author + + + | Author | [facility] | | | and [place] | + + + | Organization | [facility] | | | and [...] Team Providers + +------+ + | Care Radiologic Technology Program Director Name | Role | Phone | + [...] + + | 06/22/ | [facility] | [facility] | Jerrell Sin, | Elbow fracture, | | 2015 | | [facility] | [address] | , magda, | | | | CENTER [address] | KATHRYN HUFF | initial encounter | | | | [place] | [place] [address] | (Primary Dx) | | | | [address] | [phone] | | | | | [phone] | | | +--------+ + + + [...] might be different fro m the original. [facility] Baer Emergency Department Encounter Note [address] [place] [address] PCP:Enrrique Feliz DO [phone] CHIEF COMPLAINT: Chief [...] and evaluated in the emergency department in [place] for this and was felt to have [...] were reviewed along with EMS notes and penitentiary record s if applicable. (See chart for details) Medications and Allergy list reviewed. Nurses note and old records were reviewed The patient was seen and examined, given Motrin Ash[place] and x-ray Immobilization advised and ortho referral [...] re-check Contact information: [address] [place] [address] New Prescriptions HYDROCODONE-ACETAMINOPHEN (NORCO) 5-325 MG [...] this chart may have been created with [employer] voice recognition software. Occasi onal wrong-word or [...]
--- OUTSIDE RECORDS SUMMARY | ~2020-05-24 | XMS | Encounter Summary ---
Demographics + + + | Address | [address] | | | [place] [address] | + + + | Home Phone [...] Team Providers + +------+ + | Care Director Of Student Aid Name | Role | Phone | + [...] | | | | CENTER [address] | LATRELL SAMS MD | ligament, initial | | | | Latrell Sams MD | [phone] | encounter (Primary | | | | [address] | | Dx) | | | | [phone] | | | +--------+ + + + [...]
--- OUTSIDE RECORDS SUMMARY | ~2020-05-24 | XMS | Encounter Summary ---
Demographics + + + | Address | [address] | | | [place] [address] | + + + | Home Phone | | + + + | Preferred Language | Unknown | + + + | Marital Status | Single | + + + | Caodaism Affiliation | 1013 | + + + | Race | White | + + + | Ethnic Group | Not or | + + + Author + + + | Author | [facility] | | | and [place] | + + + | Organization | [facility] | | [...] Team Providers + +------+ + | Care Assistant Health Educator Name | Role | Phone | + [...] + + | 01/25/ | Office | [facility] | Nereyda Alvarez DO | Palpitations | | 2020 | Visit | CARDIOLOGY [place] | [address] | (Primary Dx) | | | | [address] 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
--- OUTSIDE RECORDS SUMMARY | 2020-05-24 18:02 | XMS ---
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 ENiki VISIT COUNT (12 MO.) 3 [facility] TOTAL 3 NOTE: Visits indicate total known visits. ED/UCC VISIT TRACKING (12 MO.) 05/24/2020 18:00 [facility] [place] TYPE: Emergency COMPLAINT: - FOOT PAIN/ SWELLING 09/19/2019 17:14 [facility] [place] TYPE: Emergency COMPLAINT: - TEST,MSE TO CLINIC DIAGNOSES: - Encounter for test, result unknown - Encounter for other general examination 07/30/2019 08:22 [facility] [place] TYPE: Emergency COMPLAINT: - COUGH, FEVER DIAGNOSES: - Unspecified asthma, uncomplicated - Bipolar disorder, unspecified - Allergy status to penicillin - Essential (primary) hypertension - Fever, unspecified - Personal history of nicotine dependence - Allergy status to sulfonamides status - Influenza due to other identified influenza virus with other - 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 INPATIENT VISIT TRACKING (12 MO.) 05/17/2020 06:30 [facility] [place] TYPE: [facility] COMPLAINT: - REPEAT CESARIAN DELIVERY,LIGATE OVIDUCT DIAGNOSES: - Gestational diabetes mellitus in childbirth, diet controlled - Obesity complicating childbirth - 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 - Cannabis use, unspecified, uncomplicated - Personal history of nicotine dependence - Single live - Labor and delivery complicated by cord around neck, without c - 39 weeks gestation of - Morbid (severe) obesity due to excess calories - Unspecified pre-existing hypertension complicating childbirth - Cannabis use, unspecified, uncomplicated - Unspecified asthma, uncomplicated - 39 weeks gestation of - Drug use complicating childbirth - Bipolar disorder, unspecified - Single live - lobsterman (current) use of 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 - Panic disorder [episodic paroxysmal anxiety] - Maternal care for excessive growth, third trimester, no - Morbid (severe) obesity due to excess calories - Unspecified pre-existing hypertension complicating childbirth - Drug use complicating childbirth - Allergy status to sulfonamides status - Obesity complicating childbirth - Other mental disorders complicating childbirth - Encounter for sterilization - Maternal care for unspecified type scar from previous cesarea - Obsessive-compulsive disorder, unspecified - Diseases of the respiratory system complicating childbirth - Panic disorder [episodic paroxysmal anxiety] - Other specified noninflammatory disorders of uterus - Encounter for sterilization - Allergy status to penicillin - Gestational diabetes mellitus in childbirth, diet controlled - Other mental disorders complicating childbirth - Bipolar disorder, unspecified - Personal history of nicotine dependence - Other senior care (current) drug therapy - Diseases of the respiratory system complicating childbirth - Unspecified asthma, uncomplicated - Labor and delivery complicated by cord around neck, without c - Maternal care for excessive growth, third trimester, no - Other specified noninflammatory disorders of uterus - Obsessive-compulsive disorder, unspecified - Allergy status to sulfonamides status - long-term (current) use of aspirin - Allergy status to penicillin - Maternal care for low transverse scar from previous [email or web address]
[2020-05-24] MEDS ORDERED: OXYCODONE-ACET1 EAC1 PO (18:38)
== END 2020-05-24 23:20 | disposition home or self-care (01) ==
LOC: ED 17:58
DX: O99.893 Other specified diseases and conditions complicating puerperium (principal); M79.89 Other specified soft tissue disorders; F43.10 Post-traumatic stress disorder, unspecified; I10 Essential (primary) hypertension; J45.909 Unspecified asthma, uncomplicated; F31.9 Bipolar disorder, unspecified; Z88.0 Allergy status to penicillin; Z88.2 Allergy status to sulfonamides; Z79.899 Other long term (current) drug therapy
CPT/HCPCS: 93970; 99283-25

== ENCOUNTER 2020-12-25 06:55 | Emergency (ER) | payer OTHER ==
[~2020-12-25] VITALS: Ht 167.6 cm; Wt 134.7 kg
[~2020-12-25 06:55] MED LIST changes: +OXYCODONE-ACET1 EAC1 PO
--- OUTSIDE RECORDS SUMMARY | 2020-12-25 06:58 | XMS ---
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 E.D. VISIT COUNT (12 MO.) 2 [facility] TOTAL 2 NOTE: Visits indicate total known visits. ED/UCC VISIT TRACKING (12 MO.) 12/25/2020 06:56 [facility] [place] TYPE: Emergency COMPLAINT: - VAGINAL ISSUE 05/24/2020 18:00 [facility] [place] TYPE: Emergency COMPLAINT: - FOOT PAIN/ SWELLING DIAGNOSES: - Allergy status to penicillin - Other specified soft tissue disorders - Allergy status to sulfonamides - Other intermediate card tender (current) drug therapy - Post-traumatic stress disorder, unspecified - Essential (primary) hypertension - Bipolar disorder, unspecified - Unspecified asthma, uncomplicated - OTH DISEASES AND CONDITIONS COMPLICATING PUERPERIU - OTH DISEASES AND CONDITIONS COMPLICATING PUERPERIUM INPATIENT VISIT TRACKING (12 MO.) 05/17/2020 06:[address] [facility] [place] TYPE: [facility] COMPLAINT: - REPEAT CESARIAN DELIVERY,LIGATE OVIDUCT DIAGNOSES: - Gestational diabetes mellitus in childbirth, diet controlled - Obesity complicating childbirth - Other care home (current) drug therapy - Cannabis use, unspecified, uncomplicated - Personal history of nicotine dependence - Single live - Labor and delivery complicated by cord around neck, without compression, not applicable or unspecified - 39 weeks gestation of - Morbid (severe) obesity due to excess calories - Unspecified pre-existing hypertension complicating childbirth - Cannabis use, unspecified, uncomplicated - Unspecified asthma, uncomplicated - 39 weeks gestation of - Drug use complicating childbirth - Bipolar disorder, unspecified - Single live - 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 - Panic disorder [episodic paroxysmal anxiety] - Maternal care for excessive growth, third trimester, not applicable or unspecified - Morbid (severe) obesity due to excess calories - Unspecified pre-existing hypertension complicating childbirth - Drug use complicating childbirth - Allergy status to sulfonamides - Obesity complicating childbirth - Other mental disorders complicating childbirth - Encounter for sterilization - Maternal care for unspecified type scar from previous delivery - Obsessive-compulsive disorder, unspecified - Diseases of the respiratory system complicating childbirth - Panic disorder [episodic paroxysmal anxiety] - Other specified noninflammatory disorders of uterus - Encounter for sterilization - Allergy status to penicillin - Gestational diabetes mellitus in childbirth, diet controlled - Other mental disorders complicating childbirth - Bipolar disorder, unspecified - Personal history of nicotine dependence - Other intermediate card tender (current) drug therapy - Diseases of the respiratory system complicating childbirth - Unspecified asthma, uncomplicated - Labor and delivery complicated by cord around neck, without compression, not applicable or unspecified - Maternal care for excessive growth, third trimester, not applicable or unspecified - Other specified noninflammatory disorders of uterus - Obsessive-compulsive disorder, unspecified - Allergy status to sulfonamides - 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
== END 2020-12-25 08:32 | disposition home or self-care (01) ==
LOC: ED 06:55
DX: Z03.823 Encounter for observation for suspected inserted (injected) foreign body ruled out (principal); I10 Essential (primary) hypertension; J45.909 Unspecified asthma, uncomplicated; F17.200 Nicotine dependence, unspecified, uncomplicated; Z88.0 Allergy status to penicillin; Z88.2 Allergy status to sulfonamides; Z79.899 Other long term (current) drug therapy
CPT/HCPCS: 99283

== ENCOUNTER 2021-07-11 11:09 | Emergency (ER) | payer OTHER ==
[~2021-07-11] VITALS: Ht 167.6 cm; Wt 101.6 kg
== END 2021-07-11 15:40 | disposition left against medical advice (07) ==
LOC: ED 11:09
DX: M79.89 Other specified soft tissue disorders (principal); I10 Essential (primary) hypertension; J45.909 Unspecified asthma, uncomplicated; F17.200 Nicotine dependence, unspecified, uncomplicated; Z88.0 Allergy status to penicillin; Z88.2 Allergy status to sulfonamides; Z79.899 Other long term (current) drug therapy
CPT/HCPCS: 93971; 96372; 99283-25; J1885

== ENCOUNTER 2022-04-06 22:33 | Emergency (ER) | payer OTHER ==
[~2022-04-06] VITALS: Ht 167.6 cm; Wt 101.6 kg
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
== END 2022-04-07 00:09 | disposition home or self-care (01) ==
LOC: ED 22:33
DX: S06.0X0A Concussion without loss of consciousness, initial encounter (principal); S01.111A Laceration without foreign body of right eyelid and periocular area, initial encounter; S16.1XXA Strain of muscle, fascia and tendon at neck level, initial encounter; F17.200 Nicotine dependence, unspecified, uncomplicated; I10 Essential (primary) hypertension; J45.909 Unspecified asthma, uncomplicated; Y04.2XXA Assault by strike against or bumped into by another person, initial encounter; Z23 Encounter for immunization; Z88.0 Allergy status to penicillin; Z88.2 Allergy status to sulfonamides; Z79.899 Other long term (current) drug therapy
CPT/HCPCS: 70450; 72125; 90715